=== PATIENT | female | born 1980 | race Caucasian/White ===

== ENCOUNTER 2018-07-10 23:21 | Inpatient (IN) | payer MEDICAID ==
[~2018-07-10] VITALS: Ht 152.4 cm; Wt 64.4 kg
[2018-07-10 23:23] VITALS: BP 130/72
--- NOTE | 2018-07-10 23:25 | NUR ---
PT BIB FAMILY C/O SOB. PT STATES SHE HAS BEEN HAVING TROUBLE BREATHING SINCE JANUARY AND HAS NOT BEEN ABLE TO GET HER ASTHMA UNDER CONTROL W/ PRIMARY PROVIDER; PT STATES SHE STARTED FEELING DIZZINESS/LIGHT HEADED THIS MORNING. PT STATES 8/10 PAIN, IN CHEST AND BACK THAT FEELS LIKE PRESSURE. --BREATHING LABORED; WHEEZING LUNG SOUND THROUGH OUT. PT ON STONE BANKER, PT O2 SAT 93% ON ROOM AIR. CLEAR SPEECH. PT ACTING APPROPRIATLY, AAOX4. PT IN GOWN, IN BED; BED IN LOWER LOCKED POSITION. ER AWARE. PMH: ASTHMA, THYROID RX: ALBUTEROL, LEVOTHYROXIN, PREDNISONE
--- NOTE | 2018-07-10 23:28 | NUR ---
PT TO ER BED 6
[2018-07-10] MEDS ORDERED: methylPREDNISolone SS 125 MG/2 ML VIAL IVP ONE (23:50)
[2018-07-10] MEDS ORDERED: ALBUTEROL SULFATE/IPRATROPIU 3 ML SOL IH ONE (23:50)
[2018-07-10] MEDS ORDERED: NACL 0.9% 1,000 ML IV ONE (23:50)
[2018-07-10] MEDS ORDERED: MAG SULF 2000 MG/WATER PREMIX 50 ML IV ONE (23:50)
--- NOTE | 2018-07-11 | NUR ---
RT AT BEDSIDE FOR TX.
[2018-07-11 00:11] LABS: BASOPHILS # (AUTO) 0.1 K/uL (0.00-0.22); BASOPHILS % (AUTO) 0.6 % (0.0-2.0); EOSINOPHILS # (AUTO) 1.2 K/uL (0-0.4); EOSINOPHILS % (AUTO) 13.1 % (0.0-4.0); HEMATOCRIT 42.7 % (36-48); HEMOGLOBIN 14.5 g/dL (12.0-16.0); LYMPHOCYTES # (AUTO) 3.1 K/uL (2.5-16.5); LYMPHOCYTES % (AUTO) 34.2 % (20.5-51.1); MEAN CORPUSCULAR HEMOGLOBIN 31 pg (27-31); MEAN CORPUSCULAR HGB CONC 34 g/dL (33-37); MEAN CORPUSCULAR VOLUME 90.7 fL (80-94); MONOCYTES # (AUTO) 0.5 K/uL (0.8-1.0); MONOCYTES % (AUTO) 5.7 % (1.7-9.3); NEUTROPHILS # (AUTO) 4.2 K/uL (1.8-7.7); NEUTROPHILS % (AUTO) 46.4 % (42.2-75.2); PLATELET COUNT (AUTO) 327 K/uL (140-450); RED BLOOD CELL COUNT(AUTO) 4.71 MIL/uL (4.20-5.40); RED CELL DISTRIBUTION WIDTH 13.8 % (11.6-13.7); WHITE BLOOD COUNT (AUTO) 9.1 K/uL (4.8-10.8)
--- NOTE | 2018-07-11 00:15 | NUR ---
IV START: R AC 20G. FLUSHED WELL W/O RESISTANCE; NO REDNESS OR SWELLING NOTED; TRANSPARENT DRESSING APPLIED. PT TOLERATED WELL; PT STATES 0/10 TO SIGHT.
[2018-07-11 00:29] LABS: ALBUMIN 3.7 g/dL (3.4-5.0); ANION GAP 12.9 (8-16); CARBON DIOXIDE 26.5 mmol/L (21-32); CREATININE 0.7 mg/dL (0.6-1.3); POTASSIUM 3.4 mmol/L (3.5-5.1); TOTAL BILIRUBIN 0.3 mg/dL (0.0-1.0)
[2018-07-11] MEDS ORDERED: ALBUTEROL SULFATE/IPRATROPIU 3 ML SOL IH ONE (01:00)
[2018-07-11] MEDS ORDERED: MORPHINE SULFATE 2 MG/ML SYR IVP PRN (01:35)
[2018-07-11] MEDS ORDERED: LORATADINE 10 MG TAB PO ONE (01:35)
[2018-07-11] MEDS ORDERED: DOCUSATE SODIUM 100 MG GELCAP PO PRN (01:35)
[2018-07-11] MEDS ORDERED: FAMOTIDINE 20 MG TAB PO ONE (01:35)
[2018-07-11] MEDS ORDERED: ONDANSETRON 4 MG/2 ML VIAL IM/IVP PRN (01:35)
[2018-07-11] MEDS ORDERED: HYDROcodone/APAP 7.5/325 MG 1 TAB PO PRN (01:35)
[2018-07-11] MEDS ORDERED: MONTELUKAST SODIUM 10 MG TAB PO ONE (01:35)
--- NOTE | 2018-07-11 02:00 | NUR ---
ATTEMPTED ABG. UNABLE TO GET. DR CARRILLO AWARE.
[2018-07-11] MEDS ORDERED: ALBU-118 IH (02:04)
[2018-07-11] MEDS ORDERED: ALBU0.0912 IH (02:04)
[2018-07-11] MEDS ORDERED: LEVO0.029 PO (02:04)
[2018-07-11 02:20] VITALS: BP 129/78
--- NOTE | 2018-07-11 02:20 | NUR ---
PATIENT ADMITTED TO THE UNIT. PATIENT AOX4 AND AMBULATORY. NO S/S OF DISTRESS. PT PLACED ON 2L O2, O2 SAT 94% AT THIS TIME. WHEEZING NOTED UPON AUSCULTATION. BED LOWERED WITH CALL LIGHT WITHIN REACH. WILL CONTINUE TO MONITOR
--- NOTE | 2018-07-11 02:22 | NUR ---
APatient will be admitted to care of Dr. oJhnson. Admited to Med-Surg. Will go to room 119-A via wheelchair by RN. Belongings list completed. Report to FRANKLIN Bryson.
[2018-07-11 02:26] LABS: APPEARANCE,URINE CLEAR (CLEAR); BILIRUBIN,URINE NEGATIVE (NEGATIVE); BLOOD, URINE NEGATIVE (NEGATIVE); COLOR,URINE YELLOW (YELLOW); LEUKOCYTE ESTERASE ,URINE NEGATIVE (NEGATIVE); NITRITE, URINE NEGATIVE (NEGATIVE); UGLUCOSE NEGATIVE (NEGATIVE)
[2018-07-11 02:32] LABS: BARBITURATE, URINE NEGATIVE ng/ml (NEG <=200); BENZODIAZEPINE, URINE NEGATIVE ng/mL (NEG <=200); CANNABINOID, URINE NEGATIVE ng/mL (NEG <=50); COCAINE, URINE NEGATIVE ng/mL (NEG <=300); OPIATE, URINE NEGATIVE ng/mL (NEG <=2000); PHENCYCLIDINE SCREEN,URINE NEGATIVE ng/mL (NEG <=25)
[2018-07-11] MEDS: NACL 0.9% 1,000 ML IV SCH ×3 (02:36→21:36)
[2018-07-11 02:40] LABS: PROTHROMBIN TIME 9.3 secs (10.8-13.4)
[2018-07-11 02:57] LABS: CHOL/HDL RATIO 4.6 (1-4.5); MAGNESIUM 2.1 mg/dL (1.8-2.4); PHOSPHORUS 3.8 mg/dL (2.5-4.9); THYROID STIMULATING HORMONE 9.1 uIU/mL (0.34-3.74)
--- NOTE | 2018-07-11 05:56 | NUR ---
PATIENT HAS BEEN SCREENED AND CATEGORIZED LOW NUTRITION RISK. PATIENT WILL BE SEEN WITHIN 7 DAYS OF ADMISSION. 07/17/18 DOLORES REZA MS, RDN
[2018-07-11] MEDS ORDERED: guaiFENesin DM 200/20 MG-10 ML 10 ML UDC PO PRN (06:15)
[2018-07-11] MEDS: ALBUTEROL SULFATE/IPRATROPIU 3 ML SOL IH SCH ×3 (06:47→19:23)
--- NOTE | 2018-07-11 07:21 | NUR ---
RECEIVED REPORT FROM WEED BURNER RN. PATIENT AAOX4 AND AMBULATORY. NO S/S OF DISTRESS. PT PLACED ON 2L O2, O2 SAT 95% AT THIS TIME. BILATERAL WHEEZING THROUGHOUT NOTED UPON AUSCULTATION. BED LOWERED WITH CALL LIGHT WITHIN REACH. WILL CONTINUE TO MONITOR
--- NOTE | 2018-07-11 07:36 | NUR ---
PT REPORT GIVEN AT BEDSIDE. PATIENT ENDORSED IN STABLE CONDITION
[2018-07-11 08:00] VITALS: BP 103/68
[2018-07-11] MEDS: ALBUTEROL SULFATE/IPRATROPIU 3 ML SOL IH PRN (09:36)
--- NOTE | 2018-07-11 09:37 | NUR ---
PT RECEIVING PRN BREATHING TX. PT TOLERATING WELL. NO SOB NOTED, O2 SAT AT 94%. VITALS ARE STABLE. BED IN LOW POSITION, CALL LIGHT WITHIN REACH. DAUGHTER AT BEDSIDE ACCOMPANYING PT.
[2018-07-11 11:34] LABS: BASOPHILS % (AUTO) 0.4 % (0.0-2.0); HEMATOCRIT 40.8 % (36-48); HEMOGLOBIN 13.6 g/dL (12.0-16.0); LYMPHOCYTES # (AUTO) 0.7 K/uL (2.5-16.5); LYMPHOCYTES % (AUTO) 9.6 % (20.5-51.1); MEAN CORPUSCULAR HEMOGLOBIN 31 pg (27-31); MEAN CORPUSCULAR HGB CONC 33 g/dL (33-37); MEAN CORPUSCULAR VOLUME 91.3 fL (80-94); MONOCYTES # (AUTO) 0.1 K/uL (0.8-1.0); MONOCYTES % (AUTO) 1.2 % (1.7-9.3); NEUTROPHILS # (AUTO) 6.9 K/uL (1.8-7.7); NEUTROPHILS % (AUTO) 88.8 % (42.2-75.2); PLATELET COUNT (AUTO) 331 K/uL (140-450); RED BLOOD CELL COUNT(AUTO) 4.47 MIL/uL (4.20-5.40); RED CELL DISTRIBUTION WIDTH 13.7 % (11.6-13.7); WHITE BLOOD COUNT (AUTO) 7.7 K/uL (4.8-10.8)
--- NOTE | 2018-07-11 12:04 | NUR ---
PT SLEEPING IN BED. NO SIGNS OF PAIN OR SOB NOTED. BED IN LOW POSITION, CALL LIGHT WITHIN REACH. WILL CONTINUE TO ROUND FREQUENTLY
[2018-07-11] MEDS: ACETAMINOPHEN 325 MG TAB PO PRN (12:20)
[2018-07-11] MEDS: methylPREDNISolone SS 40 MG/ML VIAL IVP SCH ×2 (12:21→20:12)
[2018-07-11] MEDS ORDERED: BENZONATATE 100 MG CAPLF PO PRN (12:25)
[2018-07-11 12:50] LABS: ANION GAP 15.9 (8-16); CARBON DIOXIDE 23.6 mmol/L (21-32); CREATININE 0.7 mg/dL (0.6-1.3); POTASSIUM 4.5 mmol/L (3.5-5.1)
--- NOTE | 2018-07-11 15:29 | NUR ---
PT RESTING IN BED. DAUGHTER AT BEDSIDE. NO COMPLAINTS OF PAIN OR SOB AT THIS TIME, WILL CONTINUE TO ROUND FREQUENTLY ON PT.
[2018-07-11 16:00] VITALS: BP 117/72
[2018-07-11] MEDS: BUDESONIDE 0.5 MG/2 ML NEBU INH SCH (19:24)
--- NOTE | 2018-07-11 19:35 | NUR ---
RECEIVED BEDSIDE REPORT FOR NEEDLE PUNCH MACHINE OPERATOR RN, PATIENT RESTING IN BED WITH FAMILY AT BEDSIDE, NO SIGNS OF DISTRESS ON 2L O2 NC, WITH WARM COMPRESS ON LOWER BACK FOR CHRONIC PAIN, NO PAIN MEDS REQUESTED AT THIS TIME, CARE PLAN DISCUSSED WITH PATIENT, BED IN LOW POSITION AND CALL LIGHT WITHIN REACH. DX: ASTHMA EXACERBATION.
--- NOTE | 2018-07-11 19:43 | NUR ---
ENDORSED PT TO INTERIOR HORTICULTURIST FOR CONTINUITY OF CARE. PT IN STABLE CONDITION.
--- NOTE | 2018-07-11 20:15 | NUR ---
ADMINISTERED SCHEDULED MEDICATIONS, PATIENT COMPLAINING OF SORE THROAT AND DRY COUGH, WILL ADMINISTER PRN COUGH SYRUP. BED IN LOW POSITION AND CALL LIGHT IN REACH. NO SIGNS OF DISTRESS.
[2018-07-11] MEDS: guaiFENesin/CODEINE 100/10MG 5 ML UDC PO PRN (21:44)
--- NOTE | 2018-07-11 21:45 | NUR ---
ADMINISTERED PRN COUGH MEDICATION FOR COMPLAINT OF COUGH. RR 18 NON-LABORED, SPO2 95% ON 2L, WILL CONTINUE TO MONITOR.
[2018-07-12] VITALS: BP 109/55
--- NOTE | 2018-07-12 | NUR ---
PATIENT SLEEPING IN BED, VITAL SIGNS STABLE, NO SIGNS OF DISTRESS, BED IN LOW POSITION, CALL LIGHT IN REACH, WILL CONTINUE TO MONITOR.
--- NOTE | 2018-07-12 02:26 | NUR ---
PATIENT SLEEPING NO SIGNS OF DISTRESS ON 2L NC.
--- NOTE | 2018-07-12 03:49 | NUR ---
PATIENT SLEEPING, BED LOW, CALL LIGHT IN REACH, NO SIGNS OF DISTRESS ON 2L NC.
[2018-07-12] MEDS: methylPREDNISolone SS 40 MG/ML VIAL IVP SCH ×4 (05:42→20:19)
--- NOTE | 2018-07-12 05:50 | NUR ---
ADMINISTERED SCHEDULED MEDICATION, PATIENT REPORTS WHEEZING AND IS REQUESTING BREATHING TREATMENT, NOTIFIED RT. RT WILL REPORT TO BEDSIDE AT EARLIEST OPPORTUNITY. WILL CONTINUE TO MONITOR PATIENT. NO SIGNS OF DISTRESS. WILL ENDORSE TO AM RN FOR CONTINUITY OF CARE.
[2018-07-12 06:10] VITALS: BP 115/73
[2018-07-12 06:37] LABS: BASOPHILS % (AUTO) 0.1 % (0.0-2.0); HEMATOCRIT 39.8 % (36-48); HEMOGLOBIN 13.3 g/dL (12.0-16.0); LYMPHOCYTES # (AUTO) 1.6 K/uL (2.5-16.5); LYMPHOCYTES % (AUTO) 9.9 % (20.5-51.1); MEAN CORPUSCULAR HEMOGLOBIN 31 pg (27-31); MEAN CORPUSCULAR HGB CONC 33 g/dL (33-37); MEAN CORPUSCULAR VOLUME 91.8 fL (80-94); MONOCYTES # (AUTO) 0.4 K/uL (0.8-1.0); MONOCYTES % (AUTO) 2.5 % (1.7-9.3); NEUTROPHILS # (AUTO) 14.5 K/uL (1.8-7.7); NEUTROPHILS % (AUTO) 87.5 % (42.2-75.2); PLATELET COUNT (AUTO) 345 K/uL (140-450); RED BLOOD CELL COUNT(AUTO) 4.34 MIL/uL (4.20-5.40); RED CELL DISTRIBUTION WIDTH 13.9 % (11.6-13.7); WHITE BLOOD COUNT (AUTO) 16.6 K/uL (4.8-10.8)
[2018-07-12] MEDS: ALBUTEROL SULFATE/IPRATROPIU 3 ML SOL IH SCH ×3 (06:55→19:49)
[2018-07-12 06:59] LABS: ANION GAP 14.3 (8-16); CARBON DIOXIDE 22.7 mmol/L (21-32); CREATININE 0.6 mg/dL (0.6-1.3)
[2018-07-12 07:04] LABS: MAGNESIUM 2.2 mg/dL (1.8-2.4); PHOSPHORUS 3.5 mg/dL (2.5-4.9)
[2018-07-12] MEDS: BUDESONIDE 0.5 MG/2 ML NEBU INH SCH ×2 (07:04→19:54)
--- NOTE | 2018-07-12 07:15 | NUR ---
GAVE BEDSIDE REPORT TO DAY SHIFT RN, PATIENT RECEIVING RT TREATMENT AT THAT TIME. PATIENT STABLE.
--- NOTE | 2018-07-12 07:17 | NUR ---
RECEIVED REPORT FROM ELECTRONIC PAGINATION SYSTEM OPERATOR RN AT BEDSIDE. PATIENT AAOX4 AND AMBULATORY. NON-PRODUCTIVE COUGHING NOTED. PT ON 2L O2, O2 SAT 93% AT THIS TIME. BILATERAL WHEEZING THROUGHOUT NOTED UPON AUSCULTATION. IV TO THE R AC 20GAUGE. IV SITE INTACT, PATENT, AND ASYMPTOMATIC. BED LOWERED WITH CALL LIGHT WITHIN REACH. WILL CONTINUE TO MONITOR.
[2018-07-12] MEDS: MONTELUKAST SODIUM 10 MG TAB PO SCH (08:09)
[2018-07-12] MEDS: LORATADINE 10 MG TAB PO SCH (08:09)
[2018-07-12] MEDS: FAMOTIDINE 20 MG TAB PO SCH (08:09)
[2018-07-12] MEDS ORDERED: methylPREDNISolone SS 40 MG/ML VIAL IVP SCH (08:14)
[2018-07-12] MEDS: NACL 0.9% 1,000 ML IV SCH ×2 (08:22→18:35)
[2018-07-12] MEDS: guaiFENesin/CODEINE 100/10MG 5 ML UDC PO PRN ×2 (10:34→17:39)
--- NOTE | 2018-07-12 10:34 | NUR ---
PT COMPLAINED COUGHING. PT WAS MEDICATED WITH PRN ROBITUSSIN 5ML. PT TOLERATED. WILL CONTINUE MONITOR.
[2018-07-12 16:00] VITALS: BP 124/73
--- NOTE | 2018-07-12 17:30 | NUR ---
PT C/O CHEST TIGHTNESS. PT STILL HAS SOME WHEEZING. CALLED RT FOR PRN BREATHING TX.
[2018-07-12] MEDS: ALBUTEROL SULFATE/IPRATROPIU 3 ML SOL IH PRN (17:39)
[2018-07-12] MEDS: ACETAMINOPHEN 325 MG TAB PO PRN (17:39)
[2018-07-12] MEDS ORDERED: INFLUENZA VIRUS VACCINE QUAD 0.5 ML SYR IMVAC PRN (17:50)
[2018-07-12] MEDS ORDERED: PNEUMOCOCCAL VACCINE 23 MCG/0.5 ML VIAL IMVAC SCH (17:50)
--- NOTE | 2018-07-12 18:20 | NUR ---
MADE DR LA AWARE PT TSH IS 9.1, PT HAS HOME MEDS FOR THYROID.
[2018-07-12] MEDS ORDERED: ATORVASTATIN 20 MG TAB PO SCH (18:30)
--- NOTE | 2018-07-12 18:30 | NUR ---
PT STATED HER CHEST TIGHTNESS GOT BETTER. NO COUGH MEDS NEEDED AT THIS TIME.
[2018-07-12] MEDS ORDERED: LEVOTHYROXINE 0.05 MG TAB PO SCH ×2 (18:40→19:30)
--- NOTE | 2018-07-12 19:15 | NUR ---
ENDORSED PT TO TOLL GATE KEEPER RN. PT IN STABLE CONDITION.
[2018-07-12] MEDS ORDERED: SALMETEROL DISKUS 50 MCG/ACTUATION DISK INH SCH (19:30)
--- NOTE | 2018-07-12 19:30 | NUR ---
RECEIVED FROM AM RN IN BED SITTING UP WITH VISITORS. GOOD AFFECT. STILL ON 02 AT 2LPM/NC. 02 SAT RANGING FROM 94 TO 96 %. STATED SHE STILL GET HAVING SOB WHEN AMBULATING. CARE PLANS FOR THE NIGHT DISCUSSED WITH HER AND CALL LIGHT WITH IN REACH. DENIES PAIN AT THIS TIME AND NO SOB. ON BREATHING TREATMENTS STILL. IVF SITE TO RAC INTACT AND NO INFILTRATION NOTED. AFEBRILE. COUGHING STILL INTERMITTENTLY WITH PRODUCTIVE SCANT YELLOWISH COLORED SPUTUM.
--- NOTE | 2018-07-12 22:35 | NUR ---
PT. STILL AWAKE AND WATCHING TV . NO COMPLAINTS DONE. VISITORS LEFT . CALL LIGHT WITH IN REACH. ENCOURAGED TO REST AND GO TO SLEEP. DENIES PAIN. "OK"
[2018-07-13 00:18] VITALS: BP 90/50
--- NOTE | 2018-07-13 00:20 | NUR ---
SLEEPING WELL. NO SOB. WOKE UP EASILY WHEN VITAL SIGNS TAKEN. CALL LIGHT WITH IN REACH. A/O X 4. ROM X 4.
--- NOTE | 2018-07-13 03:50 | NUR ---
PT. AWAKE AND REQUESTED FOR BREATHING TREATMENT. ABLE TO VERBALIZE NEEDS WELL. NO PAIN COMPLAINTS DONE.
[2018-07-13] MEDS: ALBUTEROL SULFATE/IPRATROPIU 3 ML SOL IH PRN ×2 (04:53→12:01)
--- NOTE | 2018-07-13 04:56 | NUR ---
TX GIVEN TO PATIENT BECAUSE SHE WAS WHEEZING AFTER WAKING UP AND GOING TO THE BATHROOM. PRN TX GIVEN. PATIENT STABLE AND ALERT ON 2L NC.
[2018-07-13] MEDS: NACL 0.9% 1,000 ML IV SCH (05:10)
[2018-07-13] MEDS: methylPREDNISolone SS 40 MG/ML VIAL IVP SCH (05:10)
--- NOTE | 2018-07-13 05:58 | NUR ---
AWAKE AT THIS TIME. USING HER CELL PHONE. ABLE TO VERBALIZE NEEDS WELL. CALL LIGHT WITH IN REACH. NO SOB AT THIS TIME.
--- NOTE | 2018-07-13 06:13 | NUR ---
NO COMPLAINTS DONE. SITTING UP IN BED WITH CELL PHONE WATCHING SOMETHING IN IT. NO COMPLAINTS OF PAIN AT THIS TIME. IVF SITE INTACT AND NO INFILTRATION ABLE TO USE CALL LIGHT FOR HELP. WILL ENDORSE TO AM RN FOR CONTINUITY OF CARE.
[2018-07-13] MEDS ORDERED: LEVOTHYROXINE 0.05 MG TAB PO SCH (06:30)
[2018-07-13] MEDS: ALBUTEROL SULFATE/IPRATROPIU 3 ML SOL IH SCH (06:40)
[2018-07-13] MEDS: BUDESONIDE 0.5 MG/2 ML NEBU INH SCH (06:48)
[2018-07-13 06:56] LABS: ANION GAP 12.3 (8-16); CARBON DIOXIDE 26.3 mmol/L (21-32); CREATININE 0.7 mg/dL (0.6-1.3); POTASSIUM 3.6 mmol/L (3.5-5.1)
[2018-07-13 07:00] LABS: BASOPHILS # (AUTO) 0.1 K/uL (0.00-0.22); BASOPHILS % (AUTO) 0.6 % (0.0-2.0); HEMATOCRIT 40.3 % (36-48); HEMOGLOBIN 13.3 g/dL (12.0-16.0); LYMPHOCYTES # (AUTO) 2.2 K/uL (2.5-16.5); LYMPHOCYTES % (AUTO) 11.2 % (20.5-51.1); MEAN CORPUSCULAR HEMOGLOBIN 31 pg (27-31); MEAN CORPUSCULAR HGB CONC 33 g/dL (33-37); MEAN CORPUSCULAR VOLUME 92.8 fL (80-94); MONOCYTES # (AUTO) 0.7 K/uL (0.8-1.0); MONOCYTES % (AUTO) 3.5 % (1.7-9.3); NEUTROPHILS # (AUTO) 16.4 K/uL (1.8-7.7); NEUTROPHILS % (AUTO) 84.7 % (42.2-75.2); PLATELET COUNT (AUTO) 345 K/uL (140-450); RED BLOOD CELL COUNT(AUTO) 4.34 MIL/uL (4.20-5.40); RED CELL DISTRIBUTION WIDTH 14.1 % (11.6-13.7); WHITE BLOOD COUNT (AUTO) 19.4 K/uL (4.8-10.8)
[2018-07-13 07:03] LABS: MAGNESIUM 2.3 mg/dL (1.8-2.4); PHOSPHORUS 3.7 mg/dL (2.5-4.9)
--- NOTE | 2018-07-13 07:15 | NUR ---
Received report from pm nurse Justin. Pt awake in bed, c/o 07/22 headache, states she was not able to sleep because her roommate yells spontaneously throughout the night. Will administer acetaminophen. Pt requesting for room change. Charge nurse notified.
[2018-07-13] MEDS: ACETAMINOPHEN 325 MG TAB PO PRN (07:26)
[2018-07-13 08:00] VITALS: BP 110/67
[2018-07-13] MEDS: LORATADINE 10 MG TAB PO SCH (08:32)
[2018-07-13] MEDS: MONTELUKAST SODIUM 10 MG TAB PO SCH (08:32)
[2018-07-13] MEDS: FAMOTIDINE 20 MG TAB PO SCH (08:32)
[2018-07-13] MEDS ORDERED: METH4TAB27 PO (08:50)
[2018-07-13] MEDS ORDERED: FLUT1DSK4 IH ×2 (08:50→10:39)
[2018-07-13] MEDS ORDERED: MONT10TA35 PO (08:50)
[2018-07-13] MEDS ORDERED: ATORVASTATIN 20 MG TAB PO SCH (09:00)
[2018-07-13] MEDS ORDERED: ALBU0.0912 IH (10:39)
--- NOTE | 2018-07-13 11:45 | NUR ---
Pt requesting for Rx for Albuterol inh soln for nebulizer & 7day dose of Levothyroxine d/t pt lives out of town (only visiting family) & does not have her meds here. Dr. Wade notified, states Rx will be ordered from [facility]. Pt notified & verbalized understanding.
--- NOTE | 2018-07-13 12:00 | NUR ---
Written & verbal discharge instructions provided to pt. Pt verbalized understanding & agree with discharge plans. Right ac IV discontinued.
--- NOTE | 2018-07-13 12:30 | NUR ---
Pt discharged at this time to home, accompanied by family. Pt left unit via wheelchair. Pt aaox4, no c/o discomfort, able to amb & transfer from bed to wheelchair, then wheelchair to car without difficulty. Name band removed. All belongings with pt upon discharge.
== END 2018-07-13 12:30 | disposition home or self-care (01) | DRG 133 ==
LOC: MED 23:21 → MTU 07-11 01:36
PROVIDERS: ADMIT General Practice; ATTEND General Practice
PROC: 3E0234Z Introduction of Serum, Toxoid and Vaccine into Muscle, Percutaneous Approach (ICD-10-PCS; principal; 2018-07-13)
DX: J96.01 Acute respiratory failure with hypoxia (principal); E87.8 Other disorders of electrolyte and fluid balance, not elsewhere classified; R65.10 Systemic inflammatory response syndrome (SIRS) of non-infectious origin without acute organ dysfunction; J45.901 Unspecified asthma with (acute) exacerbation; E78.5 Hyperlipidemia, unspecified; R73.9 Hyperglycemia, unspecified; E87.6 Hypokalemia; E03.9 Hypothyroidism, unspecified; E66.3 Overweight; Z68.27 Body mass index [BMI] 27.0-27.9, adult; Z91.19 Patient's noncompliance with other medical treatment and regimen; Z87.01 Personal history of pneumonia (recurrent); Z79.899 Other long term (current) drug therapy; Z98.891 History of uterine scar from previous surgery; Z83.3 Family history of diabetes mellitus; Z82.5 Family history of asthma and other chronic lower respiratory diseases; Z23 Encounter for immunization
CPT/HCPCS: 36415; 36600; 71045; 80048; 80053; 80305; 81003; 82150; 82803; 83036; 83690; 83735; 83880; 84100; 84443; 84484; 85025; 85610; 85730; 87081; 90732; 93005; 94640; 96365; 96375; 99285; J2920; J2930; J3475; J7030; J7620; J7626